=== PATIENT | male | born 1990 | race Caucasian/White ===

== ENCOUNTER 2017-05-28 16:36 | Emergency (ER) | payer OTHER ==
[~2017-05-28] VITALS: Ht 177.8 cm; Wt 96.2 kg
[2017-05-28 16:40] VITALS: BP 134/88; Ht 177.8 cm; Wt 96.2 kg
== END 2017-05-28 19:10 | disposition home or self-care (01) ==
LOC: ED 16:36
DX: S13.4XXA Sprain of ligaments of cervical spine, initial encounter (principal); S33.5XXA Sprain of ligaments of lumbar spine, initial encounter; V49.9XXA Car occupant (driver) (passenger) injured in unspecified traffic accident, initial encounter; Y93.89 Activity, other specified; Y99.8 Other external cause status; Y92.89 Other specified places as the place of occurrence of the external cause